=== PATIENT | female | born 1970 | race African-American/Black ===

== ENCOUNTER 2017-03-12 23:33 | Emergency (ER) | payer MEDICAID ==
[~2017-03-12] VITALS: Ht 167.6 cm; Wt 66.0 kg
[2017-03-13] MEDS ORDERED: KETOROLAC 30MG/ML VIAL IV STA (00:03)
[2017-03-13] MEDS ORDERED: SODIUM CHLORIDE 0.9% 1,000 ML IV ONE (00:03)
[2017-03-13 00:35] LABS: BASOPHILS % 0.8 % (0.0-2.0); HEMATOCRIT. 33.3 % (36.0-48.0); HEMOGLOBIN. 11.1 g/dL (12.0-16.0); LYMPHOCYTES % 9.5 % (20.0-50.0); MEAN CORPUSCULAR HEMOGLOBIN 26.4 pg (28.0-32.0); MEAN PLATELET VOLUME 7.2 fl (7.4-10.4); MONOCYTES % 1.6 % (2.0-8.0); NEUTROPHILS % 88.1 % (40.0-76.0); PLATELET 239 x1000/uL (130-400); RED BLOOD CELL COUNT 4.22 mill/uL (4.2-5.4); RED CELL DISTRIBUTION WIDTH 22.2 % (11.6-14.6)
[2017-03-13 00:43] LABS: CHLORIDE 106 mEq/L (98-107)
[2017-03-13 00:44] LABS: HCG SCREEN NEGATIVE
[2017-03-13] MEDS ORDERED: ONDANSETRON HCL 4MG/2ML VIAL IV ONE ×2 (00:45→02:45)
[2017-03-13 00:51] LABS: CARBON DIOXIDE 26 mEq/L (21-32); ETHANOL BLOOD < 10 mg/dL
[2017-03-13 02:58] LABS: CLARITY URINE CLEAR (CLEAR); COLOR URINE YELLOW (YELLOW); GLUCOSE URINE NEGATIVE (NEGATIVE); KETONES URINE TRACE (NEGATIVE); LEUKOCYTE ESTERASE URINE TRACE (NEGATIVE); NITRITE URINE NEGATIVE (NEGATIVE); OCCULT BLOOD URINE NEGATIVE (NEGATIVE); PROTEIN URINE NEGATIVE (NEGATIVE); SPECIFIC GRAVITY URINE 1.022 (1.005-1.030)
[2017-03-13 03:07] LABS: *AMPHETAMINES SCREEN URINE NEGATIVE (NEGATIVE); *BARBITURATES SCREEN URINE NEGATIVE (NEGATIVE); *BENZODIAZEPINES SCREEN URINE NEGATIVE (NEGATIVE); *COCAINE SCREEN URINE NEGATIVE (NEGATIVE); METHADONE URINE SCREEN NEGATIVE (NEGATIVE); PHENCYCLIDINE URINE SCREEN NEGATIVE (NEGATIVE)
[2017-03-13 03:10] LABS: CANNABINOID URINE SCREEN PRESUMTIVE POSITIVE (NEGATIVE); OPIATES URINE SCREEN PRESUMTIVE POSITIVE (NEGATIVE)
[2017-03-13 03:18] LABS: PLATELET ESTIMATE NORMAL
[2017-03-13 03:22] VITALS: BP 138/78
== END 2017-03-13 03:32 | disposition home or self-care (01) ==
LOC: ER 23:33
DX: N39.0 Urinary tract infection, site not specified (principal); R11.2 Nausea with vomiting, unspecified; F41.9 Anxiety disorder, unspecified; F19.10 Other psychoactive substance abuse, uncomplicated
CPT/HCPCS: 36415; 71010; 80053; 80305; 81001; 83690; 84703; 85025; 93005; 96361; 96374; 96375; 96376; 99285; G0482; J1885; J2405; Z7610; J7030

== ENCOUNTER 2017-06-03 11:38 | Emergency (ER) | payer MEDICAID ==
[~2017-06-03] VITALS: Ht 165.1 cm; Wt 66.0 kg
[2017-06-03 12:35] VITALS: BP 149/99
== END 2017-06-03 18:42 | disposition left against medical advice (07) ==
LOC: ER 12:19
DX: R11.2 Nausea with vomiting, unspecified (principal); Z53.21 Procedure and treatment not carried out due to patient leaving prior to being seen by health care provider

== ENCOUNTER 2018-07-04 00:24 | Inpatient (IN) | payer MEDICAID ==
[~2018-07-04] VITALS: Ht 157.5 cm; Wt 59.0 kg
[2018-07-04] MEDS ORDERED: ONDANSETRON HCL 4MG/2ML INJ IV STA (08:18)
[2018-07-04] MEDS ORDERED: SODIUM CHLORIDE 0.9% 1,000 ML IV ONE (08:18)
[2018-07-04] MEDS ORDERED: MORPHINE SULFATE 4 MG/ML CPJ (NOT FOR IM USE) IV STA (08:18)
[2018-07-04 09:03] LABS: HEMATOCRIT. 32.6 % (36.0-48.0); HEMOGLOBIN. 10.1 g/dL (12.0-16.0); MEAN CORPUSCULAR HEMOGLOBIN 22.6 pg (28.0-32.0); MEAN CORPUSCULAR VOLUME 72.8 fL (81.0-99.0); PLATELET 328 x1000/uL (130-400); RED BLOOD CELL COUNT 4.48 mill/uL (4.2-5.4); RED CELL DISTRIBUTION WIDTH 21.6 % (11.6-14.6)
[2018-07-04 09:08] LABS: CHLORIDE 104 mEq/L (98-107)
[2018-07-04 09:16] LABS: INR 1.1; PROTHROMBIN TIME 10.7 sec (9.1-11.1)
[2018-07-04 09:19] LABS: HCG SCREEN NEGATIVE
[2018-07-04] MEDS ORDERED: DICYCLOMINE 10 MG/5 ML ORAL SYR PO STA (09:38)
[2018-07-04] MEDS ORDERED: VISCOUS LIDOCAINE 2% 15 ML UDC PO STA (09:38)
[2018-07-04] MEDS ORDERED: MAGNESIUM/ALUMINUM HYDROXIDE/SIMETHICONE 30ML UDC PO STA (09:38)
[2018-07-04 10:09] LABS: PLATELET ESTIMATE NORMAL
[2018-07-04] MEDS ORDERED: ONDANSETRON HCL 4MG/2ML INJ IV ONE (10:45)
[2018-07-04] MEDS ORDERED: ONDANSETRON HCL 4MG TABLET PO ONE (14:45)
[2018-07-04] MEDS ORDERED: DOCUSATE SODIUM 100MG CAPSULE PO PRN (17:45)
[2018-07-04] MEDS ORDERED: CLONIDINE 0.1MG TABLET PO PRN (17:45)
[2018-07-04] MEDS ORDERED: LORAZEPAM 0.5MG TABLET PO PRN (17:45)
[2018-07-04] MEDS ORDERED: HYDROCODONE/ACETAMINOPHEN 5/325MG TABLET PO PRN (17:45)
[2018-07-04] MEDS ORDERED: ACETAMINOPHEN 325MG TABLET PO PRN (17:45)
[2018-07-04] MEDS ORDERED: IPRATROPIUM/ALBUTEROL 0.5-3(2.5)MG/3ML NEB INH PRN (17:45)
[2018-07-04] MEDS: ONDANSETRON HCL 4MG/2ML INJ IV PRN (18:06)
[2018-07-04 18:43] LABS: LDL CHOLESTEROL 100 mg/dL (5-100); TOTAL IRON BINDING CAPACITY 366 ug/dL (250-450)
[2018-07-04 18:45] LABS: CREATINE KINASE 177 IU/L (26-192); HDL CHOLESTEROL 116 mg/dL (40-59)
[2018-07-04 18:47] LABS: CREATINE KINASE MB FRACTION < 1.0 ng/mL (0.5-3.6)
[2018-07-04 19:15] LABS: VITAMIN B12 SERUM 614 pg/mL (211-911)
[2018-07-04 20:00] VITALS: BP 150/83
[2018-07-04 20:16] VITALS: BP 150/83
[2018-07-04 20:21] LABS: FERRITIN < 5 ng/mL (10-291)
[2018-07-04] MEDS: HYDROMORPHONE HCL/PF 2MG/ML CPJ IV PRN (21:09)
[2018-07-04] MEDS: PANTOPRAZOLE SODIUM 40 MG/VIAL IV SCH (21:25)
[2018-07-04] MEDS ORDERED: INFLUENZA VIRUS VACCINE(AFLURIA) 0.5ML SYR IM ONE (22:00)
[2018-07-05] VITALS: BP 130/69
[2018-07-05] MEDS: ONDANSETRON HCL 4MG/2ML INJ IV PRN ×2 (00:36→06:30)
[2018-07-05 04:00] VITALS: BP 141/80
[2018-07-05 07:26] LABS: CLARITY URINE CLEAR (CLEAR); COLOR URINE YELLOW (YELLOW); KETONES URINE 3+ (NEGATIVE); LEUKOCYTE ESTERASE URINE NEGATIVE (NEGATIVE); NITRITE URINE NEGATIVE (NEGATIVE); OCCULT BLOOD URINE NEGATIVE (NEGATIVE); PH URINE 6.5 (4.5-8.0); PROTEIN URINE NEGATIVE (NEGATIVE); SPECIFIC GRAVITY URINE 1.023 (1.005-1.030)
[2018-07-05 07:32] LABS: *BARBITURATES SCREEN URINE NEGATIVE (NEGATIVE)
[2018-07-05 07:33] LABS: *AMPHETAMINES SCREEN URINE NEGATIVE (NEGATIVE); *BENZODIAZEPINES SCREEN URINE NEGATIVE (NEGATIVE); METHADONE URINE SCREEN NEGATIVE (NEGATIVE); PHENCYCLIDINE URINE SCREEN NEGATIVE (NEGATIVE)
[2018-07-05 07:50] LABS: *COCAINE SCREEN URINE PRESUMTIVE POSITIVE (NEGATIVE); CANNABINOID URINE SCREEN PRESUMTIVE POSITIVE (NEGATIVE); OPIATES URINE SCREEN PRESUMTIVE POSITIVE (NEGATIVE)
[2018-07-05 08:00] VITALS: BP 153/87
[2018-07-05] MEDS: PANTOPRAZOLE SODIUM 40 MG/VIAL IV SCH (09:12)
[2018-07-05 09:32] LABS: HEMATOCRIT. 31.6 % (36.0-48.0); HEMOGLOBIN. 9.6 g/dL (12.0-16.0); MEAN CORPUSCULAR HEMOGLOBIN 21.8 pg (28.0-32.0); MEAN CORPUSCULAR VOLUME 71.7 fL (81.0-99.0); MEAN PLATELET VOLUME 7.8 fl (7.4-10.4); PLATELET 324 x1000/uL (130-400); RED CELL DISTRIBUTION WIDTH 21.7 % (11.6-14.6)
[2018-07-05 09:38] LABS: CHLORIDE 103 mEq/L (98-107)
[2018-07-05] MEDS: HYDROMORPHONE HCL/PF 2MG/ML CPJ IV PRN (09:41)
[2018-07-05 12:00] VITALS: BP 156/84
[2018-07-05 13:39] LABS: PLATELET ESTIMATE NORMAL
[2018-07-05] MEDS: METOCLOPRAMIDE HCL 10MG/2ML VIAL IV SCH ×3 (14:04→23:34)
[2018-07-05] MEDS: SUCRALFATE 1 G/10 ML UDC PO SCH ×4 (14:05→21:25)
[2018-07-05] MEDS: ONDANSETRON HCL 4MG/2ML INJ IV SCH ×3 (14:05→23:34)
[2018-07-05 15:09] LABS: T4 FREE 1.08 ng/dL (0.76-1.46)
[2018-07-05 16:00] VITALS: BP 135/78
[2018-07-05] MEDS: AMLODIPINE 5MG TABLET PO SCH (16:50)
[2018-07-05] MEDS: FERROUS SULFATE 325MG TABLET PO SCH (18:23)
[2018-07-05 20:00] VITALS: BP 116/66
[2018-07-05] MEDS: ATORVASTATIN CALCIUM 20MG TABLET PO SCH ×2 (21:00→21:25)
[2018-07-06] VITALS: BP 125/69
[2018-07-06] MEDS: HYDROMORPHONE HCL/PF 2MG/ML CPJ IV PRN (02:29)
[2018-07-06 04:00] VITALS: BP 147/91
[2018-07-06] MEDS: METOCLOPRAMIDE HCL 10MG/2ML VIAL IV SCH ×2 (05:01→12:39)
[2018-07-06] MEDS: ONDANSETRON HCL 4MG/2ML INJ IV SCH ×2 (05:01→12:39)
[2018-07-06 06:24] LABS: BASOPHILS % 0.3 % (0.0-2.0); EOSINOPHILS % 0.1 % (0.0-5.0); HEMATOCRIT. 31.1 % (36.0-48.0); HEMOGLOBIN. 9.7 g/dL (12.0-16.0); LYMPHOCYTES % 23.9 % (20.0-50.0); MEAN CORPUSCULAR HEMOGLOBIN 22.4 pg (28.0-32.0); MEAN CORPUSCULAR VOLUME 71.5 fL (81.0-99.0); MEAN PLATELET VOLUME 7.4 fl (7.4-10.4); MONOCYTES % 5.6 % (2.0-8.0); NEUTROPHILS % 70.1 % (40.0-76.0); PLATELET 316 x1000/uL (130-400); RED BLOOD CELL COUNT 4.35 mill/uL (4.2-5.4); RED CELL DISTRIBUTION WIDTH 20.7 % (11.6-14.6)
[2018-07-06] MEDS: SUCRALFATE 1 G/10 ML UDC PO SCH ×2 (06:26→12:39)
[2018-07-06 06:45] LABS: CHLORIDE 102 mEq/L (98-107)
[2018-07-06 08:00] VITALS: BP 121/67
[2018-07-06] MEDS: PANTOPRAZOLE SODIUM 40 MG/VIAL IV SCH (09:00)
[2018-07-06] MEDS: AMLODIPINE 5MG TABLET PO SCH (09:00)
[2018-07-06 12:00] VITALS: BP 119/72
[2018-07-06] MEDS: FERROUS SULFATE 325MG TABLET PO SCH ×2 (12:40→12:47)
[2018-07-06] MEDS ORDERED: ONDA4TAB5 MT (14:33)
[2018-07-06 15:47] VITALS: BP 125/90
== END 2018-07-06 16:00 | disposition home or self-care (01) | DRG 241 ==
LOC: ER 00:24 → 6EST 14:01 → EDBEDREQ 14:13 → ENRESERV 16:33
PROVIDERS: ADMIT Internal Medicine; ATTEND Internal Medicine
DX: K29.70 Gastritis, unspecified, without bleeding (principal); D50.9 Iron deficiency anemia, unspecified; E78.5 Hyperlipidemia, unspecified; F12.90 Cannabis use, unspecified, uncomplicated; E05.90 Thyrotoxicosis, unspecified without thyrotoxic crisis or storm; F14.90 Cocaine use, unspecified, uncomplicated; Z98.84 Bariatric surgery status; I10 Essential (primary) hypertension; Z90.49 Acquired absence of other specified parts of digestive tract; F41.9 Anxiety disorder, unspecified; Z88.1 Allergy status to other antibiotic agents; Z88.2 Allergy status to sulfonamides
CPT/HCPCS: 36415; 74176; 80048; 80061; 80305; 82550; 82553; 82607; 82728; 82746; 83036; 83540; 83550; 84439; 84443; 84481; 84484; 84703; 93005; 96361; 96374; 99285; C9113; J1170; J2270; J2405; J2765; J7030; Q0162